=== PATIENT | female | born 1985 | race Caucasian/White ===

== ENCOUNTER 2025-07-05 20:48 | Emergency (ER) | payer OTHER ==
[~2025-07-05] VITALS: Ht 175.3 cm; Wt 105.0 kg
[2025-07-05 21:00] VITALS: BP 132/75; PULSE 74; RESP 16; TEMP 98; O2SAT 100
[2025-07-05 21:38] LABS: APPEARANCE,URINE HAZY (CLEAR); GLUCOSE, URINE (UA) NEGATIVE (NEGATIVE); LEUKOCYTE ESTERASE ,URINE LARGE (NEGATIVE); NITRATE,URINE NEGATIVE (NEGATIVE); OCCULT BLOOD,URINE NEGATIVE (NEGATIVE); SPECIFIC GRAVITIY, URINE 1.015 (1.003-1.030)
[2025-07-05 21:41] LABS: HCG,QUAL URINE POSITIVE (NEGATIVE)
[2025-07-05 21:57] LABS: SQUAMOUS EPITHELIAL CELL,UR Few /LPF (None Seen)
== END 2025-07-05 22:29 | disposition left against medical advice (07) ==
LOC: EMS 20:48
DX: O26.891 Other specified pregnancy related conditions, first trimester (principal); R30.9 Painful micturition, unspecified; Z3A.12 12 weeks gestation of pregnancy; Z53.21 Procedure and treatment not carried out due to patient leaving prior to being seen by health care provider
CPT/HCPCS: 81001; 84703; 87077; 87086; 87186